=== PATIENT | female | born 1945 | race Caucasian/White ===

== ENCOUNTER 2018-04-30 12:36 | Emergency (ER) | payer OTHER ==
[~2018-04-30] VITALS: Ht 162.6 cm; Wt 95.3 kg
[2018-04-30] MEDS ORDERED: TRAMADOL 50 MG50 MG PO (14:32)
[2018-04-30] MEDS ORDERED: BASAGLAR K100 UNIT/1 SUBQ ×2 (14:32→14:33)
[2018-04-30] MEDS ORDERED: HYDROXYCHLOROQ200 M1 PO (14:33)
[2018-04-30] MEDS ORDERED: LOSARTAN POTAS100 MG PO (14:33)
[2018-04-30] MEDS ORDERED: KLOR-CON 1010 MEQ PO (14:34)
[2018-04-30] MEDS ORDERED: LASIX 20 MG TAB20 MG PO (14:34)
[2018-04-30] MEDS ORDERED: TRICOR145 MG PO (14:34)
[2018-04-30] MEDS ORDERED: LOPRESSOR25 PO (14:34)
[2018-04-30] MEDS ORDERED: SIMVASTATIN40 MG PO (14:35)
[2018-04-30] MEDS ORDERED: JANUVIA25 MG PO (14:35)
[2018-04-30] MEDS ORDERED: FISH OIL 1,001000 M2 PO (15:11)
[2018-04-30] MEDS ORDERED: METAMUCIL1 EAC1 PO (15:12)
[2018-04-30] MEDS ORDERED: UNICOMPLEX M TA1 TA1 PO (15:12)
[2018-04-30] MEDS ORDERED: TUMS PO (15:12)
[2018-04-30] MEDS ORDERED: VITAMIN D1000 UNI1 PO (15:12)
[2018-04-30] MEDS ORDERED: TYLENOL EXTRA500 MG PO (15:13)
[2018-04-30] MEDS ORDERED: ASPIR 8181 MG PO (15:14)
[2018-04-30] MEDS ORDERED: NOVOLOG100 UNIT/1 SUBQ ×2 (15:15)
[2018-04-30] MEDS ORDERED: NORCO 10-325 T1 EACH PO (15:36)
[2018-04-30] MEDS ORDERED: PREDNISONE 20 M20 MG PO (15:36)
[2018-04-30] MEDS ORDERED: CYCLOBENZAPRINE5 MG PO (15:36)
[2018-04-30 16:17] VITALS: BP 123/64
== END 2018-04-30 16:19 | disposition home or self-care (01) ==
LOC: ER 12:36
DX: M51.26 Other intervertebral disc displacement, lumbar region (principal); I10 Essential (primary) hypertension